=== PATIENT | male | born 1970 | race Caucasian/White ===

== ENCOUNTER 2018-05-07 23:26 | Emergency (ER) | payer SELFPAY ==
[~2018-05-07] VITALS: Ht 170.2 cm; Wt 86.2 kg
--- NOTE | 2018-05-07 23:35 | NUR ---
PT. TO ED WITH C/O FACIAL PAIN, LANDEROS, MOUTH PAIN "ROOF OF MOUTH", "FEEL DISORIENTED, RUNNING INTO STUFF." C/O COUGH AND N/V SINCE TUESDAY. ALSO C/O SORE THROAT. DR. MATOS AT TO EVAL PT. AND DISCUSS POC. PT. STATES "IT FEELS LIKE THERE IS SOMETHING IN MY BRAIN". PT. SPEAKING IN FULL SENTENCES, A&O X 4, SKIN PWD.
[2018-05-07] MEDS ORDERED: KETOROLAC 30 MG/1 ML ONE (23:45)
--- NOTE | 2018-05-07 23:52 | NUR ---
PT. MEDICATED PER MAY AND PROVIDED WITH WATER AFTER OK FROM DR. MATOS. CHEST X-RAY COMPLETED.
[2018-05-08] MEDS ORDERED: KETOROLAC 60 MG/2 ML IM ONE
[2018-05-08 00:05] LABS: BASOPHILS % (AUTO) 1 % (0-1); EOSINOPHILS % (AUTO) 2 % (1-7); LYMPHOCYTES # (AUTO) 1.61 x10^3/uL (1-3.4); LYMPHOCYTES % (AUTO) 20 % (22-44); MD NO; MEAN CORPUSCULAR HEMOGLOBIN 30.1 pg (27.5-34.5); MEAN CORPUSCULAR HGB CONC 34.4 g/dL (33.2-36.2); MEAN CORPUSCULAR VOLUME 87.7 fL (81-97); MEAN PLATELET VOLUME 8.9 fL (7.4-10.4); MONOCYTES # (AUTO) 0.64 x10^3/uL (0.2-0.8); MONOCYTES % (AUTO) 8 % (2-9); NEUTROPHILS # (AUTO) 5.55 x10^3/uL (1.8-6.8); NEUTROPHILS % (AUTO) 69 % (42-75); PLATELET COUNT 198 x10^3/uL (130-400); RED BLOOD COUNT 5.17 x10^6/uL (4.38-5.82); RED CELL DISTRIBUTION WIDTH 12.9 % (9.4-14.8)
[2018-05-08 00:17] LABS: ALANINE AMINOTRANSFERASE 27 U/L (12-78); ALBUMIN 3.8 g/dL (3.4-5.0); ANION GAP 6 mmol/L (5-15); CALCIUM 8.4 mg/dL (8.5-10.1); CHLORIDE 96 mmol/L (98-107); CREATININE 1.19 mg/dL (0.7-1.3)
[2018-05-08 00:19] LABS: ALKALINE PHOSPHATASE 106 U/L (45-117); BILIRUBIN,TOTAL 0.3 mg/dL (0.2-1.0)
[2018-05-08] MEDS ORDERED: SODIUM CHLORIDE 0.9%, 500ML IVBOLUS ONE (00:30)
[2018-05-08] MEDS ORDERED: CEFDINIR 300 MG CAPSULE PO ONE (00:30)
[2018-05-08] MEDS ORDERED: DEXAMETHASONE 1 MG TABLET PO ONE (00:30)
--- NOTE | 2018-05-08 00:33 | NUR ---
RECEIVED REPORT BACK FROM BREAK RN TO REASSUME PT. CARE AT THIS TIME. DR. MATOS AT TO DISCUSS POC WITH PT.
[2018-05-08] MEDS ORDERED: CEFDINIR 300 MG CAPSULE ONE (00:35)
--- NOTE | 2018-05-08 00:44 | NUR ---
IV ESTABLISHED; PT. MEDICATED PER MAY. SANTIAGO AT BS FOR EKG. PT. WITH NADN. PT. DENIES NEEDS.
[2018-05-08] MEDS ORDERED: DEXAMETHASONE 4 MG TABLET PO ONE (01:00)
[2018-05-08 01:10] LABS: HEMOGLOBIN A1C 11.5 % (4.2-6.3)
[2018-05-08] MEDS ORDERED: INSULIN REGULAR 100 UNITS/ML, 3ML VIAL ONE (01:18)
--- NOTE | 2018-05-08 01:26 | NUR ---
2ND LITER IV NS HUNG PER ORDER. PT. MEDICATED PER MAY. DENIES NEEDS. NADN.
[2018-05-08] MEDS ORDERED: INSULIN REGULAR 100 UNITS/ML, 3ML VIAL SQ-INSULIN ONE (01:30)
[2018-05-08 03:03] VITALS: BP 104/68
== END 2018-05-08 03:03 | disposition home or self-care (01) ==
LOC: ED 05-08 00:36
DX: J15.9 Unspecified bacterial pneumonia (principal); E11.65 Type 2 diabetes mellitus with hyperglycemia
CPT/HCPCS: 36415; 70450; 71045; 80053; 82962; 83036; 83735; 85025; 93005; 96360; 96361; 96372; 99284; J1885; J7040